=== PATIENT | female | born 1975 | race Caucasian/White ===

== ENCOUNTER 2021-12-19 04:52 | Day surgery (SDC) | payer BC ==
[2021-12-07 15:45] VITALS: BMI 24.9
[2021-12-19 10:28] VITALS: TEMP 97.8
[2021-12-20 13:11] VITALS: BP 117/78; PULSE 68
== END 2021-12-19 11:33 | disposition home or self-care (01) ==
LOC: JASU-ENDO 04:52
PROVIDERS: ATTEND Internal Medicine Gastroenterology
PROC: 0DBE8ZX Excision of Large Intestine, Via Natural or Artificial Opening Endoscopic, Diagnostic (ICD-10-PCS; 2021-12-19)
PROC: 0DBK8ZX Excision of Ascending Colon, Via Natural or Artificial Opening Endoscopic, Diagnostic (ICD-10-PCS; principal; 2021-12-19 09:50)
DX: Z12.11 Encounter for screening for malignant neoplasm of colon (principal); D12.6 Benign neoplasm of colon, unspecified; D12.2 Benign neoplasm of ascending colon
CPT/HCPCS: 81025; 88305-TC

== ENCOUNTER 2024-11-18 04:43 | Day surgery (SDC) | payer BC ==
[2024-11-18 09:18] VITALS: BMI 22.1
[2024-11-18 10:34] VITALS: TEMP 98.7
[2024-11-18 10:46] VITALS: RESP 20
[2024-11-18 11:11] VITALS: BP 108/73; PULSE 68
== END 2024-11-18 11:28 | disposition home or self-care (01) ==
LOC: JASU-ENDO 04:43
PROVIDERS: ATTEND Internal Medicine Gastroenterology
PROC: 0DB78ZX Excision of Stomach, Pylorus, Via Natural or Artificial Opening Endoscopic, Diagnostic (ICD-10-PCS; 2024-11-18)
PROC: 0DB68ZX Excision of Stomach, Via Natural or Artificial Opening Endoscopic, Diagnostic (ICD-10-PCS; 2024-11-18)
PROC: 0DB98ZX Excision of Duodenum, Via Natural or Artificial Opening Endoscopic, Diagnostic (ICD-10-PCS; principal; 2024-11-18 09:30)
DX: K29.40 Chronic atrophic gastritis without bleeding (principal); B96.81 Helicobacter pylori [H. pylori] as the cause of diseases classified elsewhere; K44.9 Diaphragmatic hernia without obstruction or gangrene; K21.00 Gastro-esophageal reflux disease with esophagitis, without bleeding
CPT/HCPCS: 81025; 88305-TC; 88341-TC; 88342-TC